=== PATIENT | female | born 1990 | race Caucasian/White ===

== ENCOUNTER 2020-06-15 13:48 | Emergency (ER) | payer MEDICAID, OTHER ==
[2020-06-15 15:00] LABS: Bilirubin Unable to Interpret (Negative); Blood, Urine Unable to Interpret (Negative); Clarity Clear (Clear); Glucose, Urine (Dipstick) Unable to Interpret mg/dL (Negative); Ketone, Urine Unable to Interpret mg/dL (Negative); Leukocyte Unable to Interpret (Negative); Nitrite Unable to Interpret (Negative); Protein, Urine (Dipstick) Negative (Neg-Trace); Specific Gravity, Urine 1.022 (1.002-1.036); Urobilinogen UNABLE TO INTERPRET mg/dL (Less than 2)
[2020-06-15 15:15] LABS: Bacteria/HPF None Seen HPF (None Seen); RBC/HPF None Seen HPF (0-3); Squamous Epithelial None Seen HPF (0-3); WBC/HPF 0-3 HPF (0-3)
[2020-06-16 12:33] LABS: SARS-CoV-2 MS2 Positive; SARS-CoV-2 N Gene Negative; SARS-CoV-2 S Gene Negative; SARS-CoV-2 by NAA Not Detected (NotDetected); SARS-CoV-2 orf1ab Negative
== END 2020-06-15 16:23 | disposition home or self-care (01) ==
LOC: ERS 13:48
DX: R30.0 Dysuria (principal); Z20.828 Contact with and (suspected) exposure to other viral communicable diseases
CPT/HCPCS: 81003; 81015; 87635; 99283; U0003

== ENCOUNTER 2020-06-30 21:14 | Emergency (ER) | payer MEDICAID | END 2020-06-30 23:52 | disposition home or self-care (01) | LOC: ERS 21:14 | DX: K08.89 Other specified disorders of teeth and supporting structures (principal); F41.9 Anxiety disorder, unspecified | CPT/HCPCS: 99282 ==

== ENCOUNTER 2020-10-10 01:21 | Emergency (ER) | payer MEDICAID | END 2020-10-10 01:50 | disposition home or self-care (01) | LOC: ERS 01:21 | DX: Z20.2 Contact with and (suspected) exposure to infections with a predominantly sexual mode of transmission (principal) | CPT/HCPCS: 99281 ==